=== PATIENT | female | born 1950 | race African-American/Black ===

== ENCOUNTER 2023-11-11 10:46 | Inpatient (IN) | payer OTHER ==
[2023-11-11 11:07] LABS: BASO % 1.1 % (0-2.0); EOS % 4.1 % (0-4.5); HEMATOCRIT 31.8 % (32.4-45.2); HEMOGLOBIN 10.1 GM/dL (10.7-15.3); LYMPH % 23.5 % (8-40); MCH 27.6 pg (25.7-33.7); MCHC 31.8 g/dl (32.0-36.0); MEAN CELL VOLUME 86.6 fl (80-96); MEAN PLT VOLUME 7.3 fl (7.5-11.1); MONO % 14.3 % (3.8-10.2); PLATELET COUNT 151 10^3/uL (134-434); RBC 3.68 M/mm3 (3.60-5.2); RDW 22.2 % (11.6-15.6); WHITE BLOOD COUNT 6.2 K/mm3 (4.0-10.0)
[2023-11-11 11:31] LABS: POTASSIUM 5.6 mmol/L (3.5-5.1)
[2023-11-11 11:33] LABS: ALBUMIN 2.8 g/dl (3.4-5.0); BLOOD UREA NITROGEN 16.8 mg/dL (7-18)
[2023-11-11 11:34] LABS: MAGNESIUM 2.2 mg/dL (1.8-2.4)
[2023-11-11 11:37] LABS: CREATININE 3.7 mg/dL (0.55-1.3)
[2023-11-11 11:38] LABS: TOT PROT 6.2 g/dl (6.4-8.2)
[2023-11-11 11:39] LABS: BILIRUBIN,TOTAL 0.7 mg/dL (0.2-1)
[2023-11-11 11:46] LABS: N-TERMINAL BNP 6265.7 pg/ml (5-450)
[2023-11-11] MEDS ORDERED: FENTANYL CITRATE/PF 50 MCG/ML VIAL ONE ×3 (12:05→16:15)
[2023-11-11] MEDS ORDERED: MIDAZOLAM HCL 2 MG/2 ML SINGLE DOSE VIAL ONE (12:05)
[2023-11-11] MEDS ORDERED: PROPOFOL 20 ML ONE ×2 (12:05→15:33)
[2023-11-11] MEDS ORDERED: HEPARIN NA (PORCINE) 5,000 UNITS/ML 1ML VIAL ONE ×2 (12:15→16:32)
[2023-11-11] MEDS ORDERED: LIDOCAINE HCL 1%, 10 MG/ML (20ML VIAL) ONE ×2 (12:15→16:33)
[2023-11-11 12:38] LABS: ANISOCYTOSIS 3+; MACROCYTOSIS 0; TARGET CELLS 1+
[2023-11-11 15:13] LABS: BASO % 0.6 % (0-2.0); HEMATOCRIT 44.2 % (32.4-45.2); HEMOGLOBIN 14.3 GM/dL (10.7-15.3); LYMPH % 10.3 % (8-40); MCH 28.9 pg (25.7-33.7); MCHC 32.3 g/dl (32.0-36.0); MEAN CELL VOLUME 89.4 fl (80-96); MEAN PLT VOLUME 7.2 fl (7.5-11.1); MONO % 9.8 % (3.8-10.2); NEUT % 77.3 % (42.8-82.8); PLATELET COUNT 112 10^3/uL (134-434); RBC 4.94 M/mm3 (3.60-5.2); RDW 17.6 % (11.6-15.6); WHITE BLOOD COUNT 10.8 K/mm3 (4.0-10.0)
[2023-11-11 15:21] LABS: INR 1.02 (0.83-1.09); PROTHROMBIN TIME (PATIENT) 11.5 SEC (9.7-13.0)
[2023-11-11 15:24] LABS: ACTIVATED PTT 29.7 SECONDS (25.2-36.5)
[2023-11-11] MEDS: ceFAZolin SODIUM 1 GM VIAL IVPB ONE (15:30)
[2023-11-11] MEDS ORDERED: ceFAZolin SODIUM 1 GM VIAL ONE (15:42)
[2023-11-11] MEDS: VANCOMYCIN PREMIX 1.5 GM 1,500 MG/300 ML BAG IVPB ONE (20:00)
[2023-11-11] MEDS: CLINDAMYCIN 900 MG PREMIX IVPB 900 MG/50 ML BAG IVPB ONE (20:22)
[2023-11-11] MEDS: PIPERACILLIN/TAZOB 4.5 GM 4.5 GM in DEXTROSE 5%-WATER 100 ML IVPB ONE (20:22)
[2023-11-11] MEDS: CHLORHEXIDINE GLUCONATE 4% CLEANSER FOR DECOLONIZATION TP SCH (21:30)
[2023-11-12] MEDS: ACETAMINOPHEN 1000 MG/100 ML BAG IVPB PRN (04:43)
[2023-11-12 06:38] LABS: BASO % 0.5 % (0-2.0); EOS % 3.1 % (0-4.5); HEMATOCRIT 36.4 % (32.4-45.2); HEMOGLOBIN 12.2 GM/dL (10.7-15.3); LYMPH % 11.1 % (8-40); MCH 29.2 pg (25.7-33.7); MCHC 33.4 g/dl (32.0-36.0); MEAN CELL VOLUME 87.4 fl (80-96); MEAN PLT VOLUME 7.5 fl (7.5-11.1); MONO % 12.5 % (3.8-10.2); NEUT % 72.8 % (42.8-82.8); PLATELET COUNT 99 10^3/uL (134-434); RBC 4.17 M/mm3 (3.60-5.2); RDW 18.1 % (11.6-15.6); WHITE BLOOD COUNT 9.8 K/mm3 (4.0-10.0)
[2023-11-12 07:21] LABS: POTASSIUM 5.1 mmol/L (3.5-5.1)
[2023-11-12 07:25] LABS: BLOOD UREA NITROGEN 36.2 mg/dL (7-18)
[2023-11-12 07:28] LABS: CALCIUM 9.1 mg/dL (8.5-10.1); CREATININE 5.3 mg/dL (0.55-1.3); MAGNESIUM 2.1 mg/dL (1.8-2.4); PHOSPHOROUS 6.7 mg/dL (2.5-4.9)
[2023-11-12] MEDS: MUPIROCIN 2% TOPICAL OINTMENT FOR DECOLONIZATION NS SCH (09:09)
[2023-11-12] MEDS: SEVELAMER CARBONATE 800 MG TAB (FP) PO SCH (11:13)
[2023-11-12] MEDS: DORZOLAMIDE 2% HCL OPHTHALMIC SOLUTION 10 ML BOTTLE OS SCH (11:14)
[2023-11-12] MEDS: predniSONE 5 MG TABLET (UD) PO SCH (11:15)
[2023-11-12] MEDS: CINACALCET HCL 30 MG TAB (FP) PO SCH (11:15)
[2023-11-12] MEDS: LOSARTAN POTASSIUM 50 MG TABLET PO SCH (14:26)
[2023-11-12] MEDS ORDERED: ACETAMINOPHEN 325 MG TABLET (FP) PO PRN (16:07)
[2023-11-12] MEDS ORDERED: ACETAMINOPHEN 1000 MG/100 ML BAG IVPB PRN (16:07)
[2023-11-12] MEDS: CEFAZOLIN SODIUM 2 GM in DEXTROSE 5%-WATER 100 ML IVPB SCH (16:34)
[2023-11-12 16:56] LABS: BASO % 0.2 % (0-2.0); EOS % 3.3 % (0-4.5); HEMATOCRIT 35.7 % (32.4-45.2); HEMOGLOBIN 12.1 GM/dL (10.7-15.3); MCH 29.9 pg (25.7-33.7); MEAN CELL VOLUME 87.9 fl (80-96); MONO % 10.1 % (3.8-10.2); NEUT % 74.4 % (42.8-82.8); PLATELET COUNT 109 10^3/uL (134-434); RBC 4.06 M/mm3 (3.60-5.2); WHITE BLOOD COUNT 9.4 K/mm3 (4.0-10.0)
[2023-11-12 17:17] LABS: POTASSIUM 5.1 mmol/L (3.5-5.1)
[2023-11-12 17:18] LABS: CALCIUM 9.3 mg/dL (8.5-10.1)
[2023-11-12 17:19] LABS: BLOOD UREA NITROGEN 44.6 mg/dL (7-18)
[2023-11-12 17:22] LABS: CREATININE 6.5 mg/dL (0.55-1.3)
[2023-11-12] MEDS: ATORVASTATIN CA 20 MG TABLET (FP) PO SCH (21:52)
[2023-11-13 07:36] LABS: BASO % 0.5 % (0-2.0); EOS % 6.7 % (0-4.5); HEMATOCRIT 33.4 % (32.4-45.2); HEMOGLOBIN 11.2 GM/dL (10.7-15.3); LYMPH % 14.4 % (8-40); MCH 29.5 pg (25.7-33.7); MCHC 33.5 g/dl (32.0-36.0); MEAN CELL VOLUME 88.2 fl (80-96); MEAN PLT VOLUME 8.2 fl (7.5-11.1); MONO % 10.8 % (3.8-10.2); NEUT % 67.6 % (42.8-82.8); PLATELET COUNT 116 10^3/uL (134-434); RBC 3.79 M/mm3 (3.60-5.2); RDW 18.6 % (11.6-15.6); WHITE BLOOD COUNT 8.6 K/mm3 (4.0-10.0)
[2023-11-13 07:52] LABS: CHLORIDE 99 mmol/L (98-107); POTASSIUM 4.7 mmol/L (3.5-5.1); SODIUM 132 mmol/L (136-145)
[2023-11-13 07:57] LABS: BLOOD UREA NITROGEN 56.4 mg/dL (7-18); CALCIUM 9.2 mg/dL (8.5-10.1)
[2023-11-13 07:58] LABS: ALBUMIN 2.4 g/dl (3.4-5.0); ANION GAP 11 mmol/L (4-13); CO2 22 mmol/L (21-32); GLUCOSE,RANDOM 85 mg/dL (74-106); MAGNESIUM 2.3 mg/dL (1.8-2.4)
[2023-11-13 08:01] LABS: PHOSPHOROUS 6.2 mg/dL (2.5-4.9); SGOT/AST 13 U/L (15-37)
[2023-11-13 08:02] LABS: TOT PROT 5.1 g/dl (6.4-8.2)
[2023-11-13 08:03] LABS: ALK PHOS 47 U/L (45-117); BILIRUBIN,TOTAL 0.4 mg/dL (0.2-1)
[2023-11-13 08:08] LABS: CREATININE 8.3 mg/dL (0.55-1.3); SGPT/ALT < 6 U/L (13-61)
[2023-11-13] MEDS: MULTIVITAMINS (DAILY MVI) TABLET (FP) PO SCH (09:08)
[2023-11-13] MEDS ORDERED: LOSARTAN POTASSIUM 50 MG TABLET PO SCH (10:00)
[2023-11-13] MEDS: SODIUM ZIRCONIUM CYCLOSILICATE (LOKELMA) 5 GM PACKET PO ONE (11:04)
[2023-11-13] MEDS: DOCUSATE SODIUM 100 MG CAPSULE (FP) PO SCH (13:13)
[2023-11-13] MEDS: POLYETHYLENE GLYCOL (HEALTHYLAX) 3350 17 GM PACKET PO SCH (13:13)
[2023-11-13] MEDS ORDERED: SODIUM CHLORIDE 250 ML IV PRN (20:56)
[2023-11-14 09:05] LABS: CHLORIDE 99 mmol/L (98-107); POTASSIUM 4.7 mmol/L (3.5-5.1); SODIUM 133 mmol/L (136-145)
[2023-11-14 09:07] LABS: ALBUMIN 2.4 g/dl (3.4-5.0); ANION GAP 14 mmol/L (4-13); BLOOD UREA NITROGEN 72.3 mg/dL (7-18); CALCIUM 9.3 mg/dL (8.5-10.1); CO2 20 mmol/L (21-32)
[2023-11-14 09:08] LABS: GLUCOSE,RANDOM 76 mg/dL (74-106)
[2023-11-14 09:11] LABS: SGOT/AST 12 U/L (15-37)
[2023-11-14 09:12] LABS: BILIRUBIN,TOTAL 0.4 mg/dL (0.2-1); TOT PROT 5.1 g/dl (6.4-8.2)
[2023-11-14 09:13] LABS: ALK PHOS 49 U/L (45-117)
[2023-11-14 09:17] LABS: CREATININE 10.8 mg/dL (0.55-1.3); SGPT/ALT < 6 U/L (13-61)
[2023-11-14] MEDS ORDERED: SODIUM CHLORIDE 250 ML IV PRN (14:14)
[2023-11-15] MEDS: HEPARIN NA (PORCINE) 5,000 UNITS/ML 1ML VIAL IVPUSH ONE (08:15)
[2023-11-15 08:39] LABS: HEMATOCRIT 29.9 % (32.4-45.2); HEMOGLOBIN 10.1 GM/dL (10.7-15.3); MCH 29.8 pg (25.7-33.7); MCHC 33.6 g/dl (32.0-36.0); MEAN CELL VOLUME 88.7 fl (80-96); PLATELET COUNT 138 10^3/uL (134-434); RBC 3.37 M/mm3 (3.60-5.2); RDW 18.5 % (11.6-15.6); WHITE BLOOD COUNT 7.6 K/mm3 (4.0-10.0)
[2023-11-15 08:40] LABS: CHLORIDE 99 mmol/L (98-107); POTASSIUM 3.9 mmol/L (3.5-5.1); SODIUM 134 mmol/L (136-145)
[2023-11-15 08:43] LABS: CALCIUM 8.9 mg/dL (8.5-10.1)
[2023-11-15 08:44] LABS: ANION GAP 8 mmol/L (4-13); CO2 28 mmol/L (21-32); GLUCOSE,RANDOM 73 mg/dL (74-106)
[2023-11-15] MEDS: HEPARIN NA (PORCINE) 5,000 UNITS/ML 1ML VIAL IVPUSH SCH (08:45)
[2023-11-15 08:49] LABS: BLOOD UREA NITROGEN 46.6 mg/dL (7-18); CREATININE 8.7 mg/dL (0.55-1.3)
== END 2023-11-16 14:47 | disposition home or self-care (01) | DRG 252 ==
LOC: JER 10:46 → JERBED 11:56 → JICU 13:51 → J5S 11-12 15:55
PROVIDERS: ADMIT Internal Medicine Pulmonary Disease; ATTEND Internal Medicine
PROC: 0JH60XZ Insertion of Tunneled Vascular Access Device into Chest Subcutaneous Tissue and Fascia, Open Approach (ICD-10-PCS; 2023-11-11)
PROC: 30233N1 Transfusion of Nonautologous Red Blood Cells into Peripheral Vein, Percutaneous Approach (ICD-10-PCS; 2023-11-11)
PROC: 03L Upper Arteries, Occlusion (ICD-10-PCS; principal; 2023-11-11 16:00)
PROC: 03C50ZZ Extirpation of Matter from Right Axillary Artery, Open Approach (ICD-10-PCS; 2023-11-11 16:00)
PROC: 5A1D70Z Performance of Urinary Filtration, Intermittent, Less than 6 Hours Per Day (ICD-10-PCS; 2023-11-15)
DX: T82.838A Hemorrhage due to vascular prosthetic devices, implants and grafts, initial encounter (principal); N18.6 End stage renal disease; R57.8 Other shock; I12.0 Hypertensive chronic kidney disease with stage 5 chronic kidney disease or end stage renal disease; Y83.9 Surgical procedure, unspecified as the cause of abnormal reaction of the patient, or of later complication, without mention of misadventure at the time of the procedure; E86.1 Hypovolemia; D64.9 Anemia, unspecified; E78.5 Hyperlipidemia, unspecified; Z99.2 Dependence on renal dialysis
CPT/HCPCS: 0241U-QW; 36415; 36430; 71045-TC-FY; 76000-TC-FY; 80048; 80053; 82962; 83690; 83735; 83880; 84100; 85025; 85027; 85610; 85730; 86704; 86803; 86850; 86900; 86901; 86922; 87040; 87340; 87517; 88304-TC; 93005; 93010; 97116-GP; 97161-GP; 99291; C1750; G0480; J0131; J1644; P9058

== ENCOUNTER 2024-01-18 04:19 | Day surgery (SDC) | payer OTHER ==
[2024-01-13 15:16] VITALS: BMI 27.1
[2024-01-18] MEDS ORDERED: MIDAZOLAM HCL 2 MG/2 ML SINGLE DOSE VIAL ONE (08:51)
[2024-01-18] MEDS ORDERED: LIDOCAINE HCL/PF 2% SDV 5ML VIAL ONE (08:51)
[2024-01-18] MEDS ORDERED: PROPOFOL 20 ML ONE ×2 (08:51→11:02)
[2024-01-18] MEDS ORDERED: ROPIVACAINE HCL 0.5% 30ML VIAL ONE (09:25)
[2024-01-18] MEDS ORDERED: LIDOCAINE HCL 1%, 10 MG/ML (20ML VIAL) ONE (09:26)
[2024-01-18] MEDS ORDERED: POVIDONE-IODINE OINTMENT 10% - 28.4 GM TUBE ONE (09:26)
[2024-01-18] MEDS ORDERED: HEPARIN NA (PORCINE) 5,000 UNITS/ML 1ML VIAL ONE (09:27)
[2024-01-18] MEDS ORDERED: DEXMEDETOMIDINE HCL 200 MCG/2 ML IVPB ONE (09:55)
[2024-01-18] MEDS ORDERED: DEXAMETHASONE SOD PHOSPHATE 4 MG/1 ML VIAL ONE (10:09)
[2024-01-18] MEDS ORDERED: KETOROLAC TROMETHAMINE 30 MG/1 ML VIAL ONE (10:09)
[2024-01-18] MEDS ORDERED: ceFAZolin SODIUM 1 GM VIAL ONE (10:09)
[2024-01-18] MEDS ORDERED: ONDANSETRON 4 MG/2 ML VIAL ONE (10:09)
[2024-01-18] MEDS: ceFAZolin SODIUM 1 GM VIAL IVPB ONE (10:10)
[2024-01-18] MEDS: LIDOCAINE HCL 1%, 10 MG/ML (20ML VIAL) NR ONE ×3 (10:22)
[2024-01-18] MEDS ORDERED: ONDANSETRON 4 MG/2 ML VIAL IVPUSH PRN (10:35)
[2024-01-18] MEDS ORDERED: PROMETHAZINE HCL 25 MG/1 ML VIAL IVPB PRN (10:35)
[2024-01-18] MEDS ORDERED: oxyCODONE HCL 5 MG TABLET PO PRN ×2 (10:35)
[2024-01-18] MEDS ORDERED: LACTATED RINGERS SOLUTION 1,000 ML IV SCH (10:45)
[2024-01-18] MEDS: POVIDONE-IODINE OINTMENT 10% - 28.4 GM TUBE TP ONE ×2 (11:58)
[2024-01-18] MEDS: ACETAMINOPHEN INJECTION 100 ML IVPB ONE (12:54)
[2024-01-18] MEDS: ACETAMINOPHEN 1000 MG/100 ML BAG IVPB ONE (12:54)
[2024-01-18 14:54] VITALS: RESP 16
[2024-01-18 15:41] VITALS: BP 116/58; PULSE 72; TEMP 97.1
== END 2024-01-18 16:00 | disposition home or self-care (01) ==
LOC: JASU-SURG 04:19
PROVIDERS: ATTEND Surgery
PROC: 05C73ZZ Extirpation of Matter from Right Axillary Vein, Percutaneous Approach (ICD-10-PCS; 2024-01-18)
PROC: 03170JD Bypass Right Brachial Artery to Upper Arm Vein with Synthetic Substitute, Open Approach (ICD-10-PCS; principal; 2024-01-18 10:00)
DX: I12.0 Hypertensive chronic kidney disease with stage 5 chronic kidney disease or end stage renal disease (principal); I82.A11 Acute embolism and thrombosis of right axillary vein; N18.6 End stage renal disease; Z99.2 Dependence on renal dialysis
CPT/HCPCS: 88304-TC; 94760; C1768; J0131; J1644